=== PATIENT | female | born 1990 | race Caucasian/White ===

== ENCOUNTER 2018-11-06 14:31 | Emergency (ER) | payer MEDICAID, OTHER ==
[~2018-11-06] VITALS: Ht 154.9 cm; Wt 58.5 kg
[2018-11-06 15:03] VITALS: BP 116/55; PULSE 62; RESP 18; Ht 154.9 cm; Wt 58.5 kg
[2018-11-06] MEDS ORDERED: ACET500C5 PO (15:20)
[2018-11-06] MEDS ORDERED: AZIT250T PO (15:20)
[2018-11-06] MEDS ORDERED: D-ME473S2 PO (15:20)
[2018-11-06] MEDS ORDERED: PROM5SYR2 PO (15:22)
--- NOTE | 2018-11-06 15:24 | ERD ---
ER Documentation Chief Complaint Chief Complaint COUGH, CHEST CONGESTION HPI 28-year-old female presents with mildly productive cough anterior pleuritic chest pain for the last 3-4 days. She denies fevers, vomiting, abdominal pain. patient denies sustained chest pain. ROS All systems reviewed and are negative except as per history of present illness. Medications Home Meds Active Scripts Promethazine HCl/Codeine (Prometh-Codein 6.25-10 mg/5 ml) 5 Ml Syrup, 5 ML PO QHS for 5 Days 4 oz Prov:PARTH JARQUIN MD 11/06/18 Acetaminophen* (Tylophen*) 500 Mg Capsule, 1 CAP PO Q6H PRN for PAIN AND OR ELEVATED TEMP, #15 CAP Prov:PARTH JARQUIN MD 11/06/18 Azithromycin* (Zithromax*) 250 Mg Tablet, 250 MG PO .ZPACK DIRECTED, #6 TAB TAKE 500 MG (2 TABS) THE FIRST DAY THEN 250 MG (1 TAB) DAYS 2-5 Prov:PARTH JARQUIN MD 11/06/18 Discontinued Scripts Dextromethorphan Hb-Promethazine Hcl* (Promethazine DM* Syrup) 473 Ml Syrup, 5 ML PO Q6 PRN for COUGH for 5 Days, ML 4 oz Prov:PARTH JARQUIN MD 11/06/18 FmHx Family History: No diabetes, No coronary disease, No other Physical Exam Vitals Vital Signs Date Temp Pulse Resp B/P (MAP) Pulse Ox O2 O2 Flow FiO2 Time Delivery Rate 11/06/18 98.8 62 18 116/55 100 15:03 (75) Physical Exam Const: No acute distress. Well-appearing. Head: Atraumatic Eyes: Normal Conjunctiva ENT: Normal External Ears, Nose and Mouth. TMs and oropharynx normal. Tender anterior cervical lymph node area without dominant masses or significant swelling. Neck: Full range of motion. No meningismus. Resp: Clear to auscultation bilaterally. Active dry coarse cough. Cardio: Regular rate and rhythm, no murmurs Abd: Soft, non tender, non distended. Normal bowel sounds Skin: No petechiae or rashes Back: No midline or flank tenderness Ext: No cyanosis, or edema Neur: Awake and alert Psych: Normal Mood and Affect Procedures/MDM She presents with URI symptoms for last 3-4 days. She likely has viral URI. She was given a short course of Tylenol, promethazine with codeine. Patient was given a prescription of Zithromax and encouraged to hold for 3-4 days and take for more productive mucus. Current signs or symptoms to suggest pneumonia, hypoxemia, respiratory distress. The patient was stable with no new complaints during the ER course. Clinically, there is no current evidence to suggest meningitis, sepsis, acute abdomen, pneumonia, stroke, acute coronary syndrome, pulmonary embolism, aortic dissection or any other emergent condition appearing to require further evaluation or hospitalization. Patient counseled regarding my diagnostic impression and care plan. Prior to discharge all questions answered. Pt agrees with treatment plan and understands strict return precautions. Pt is instructed to follow up with primary care provider within 24- 48 hours. Precautionary instructions provided including instructions to return to the ER if not improving or for any worsening or changing symptoms or concerns. Departure Diagnosis: Primary Impression: Cough Condition: Stable Patient Instructions: Bronchitis, Antiobiotic Treatment (Adult) Additional Instructions: Okay to hold prescription for antibiotics for 2-4 days. And take for more productive mucus. Recheck otherwise for new or worsening symptoms. PARTH JARQUIN MD Nov 06, 2018 15:24
== END 2018-11-06 15:57 | disposition home or self-care (01) ==
LOC: FTE 14:31
DX: R05 Cough (principal)
CPT/HCPCS: 99283